=== PATIENT | male | born 2000 | race Caucasian/White ===

== ENCOUNTER 2025-03-13 20:39 | Emergency (ER) | payer OTHER, SELFPAY ==
[2025-03-13 20:41] VITALS: BP 138/85
--- NOTE | 2025-03-14 00:16 | ED.GENMED ---
History of Present Illness
General
Chief Complaint: Oral/Mouth Problem
Source: patient
Exam Limitations: none
Time Seen by Provider: 03/13/25 23:28
Nursing documentation reviewed up to this point in time: agreed with
History of Present Illness
History of Present Illness:
24-year-old male presenting to the emergency department today with concern comfort to his teeth and mouth after being hit while playing basketball prior to arrival. There are some looseness to the left maxillary anterior incisor. No trouble
swallowing or breathing. Did have previous dental injury and does have a retainer for this in place.
Review of Systems
Review of Systems
Allergies reviewed?: Yes
All Other Systems: ROS reviewed and negative except as documented in HPI and ROS
Phy Exam
Physical Exam
Physical Exam:
GENERAL: Alert , in no apparent distress
EYE: pupils equal and reactive
NECK: Supple, no significant adenopathy.
ENT: Slight movement to the left maxillary anterior incisor otherwise no emergent findings o/p clr, mmm.
CARDIAC: Regular rate and rhythm .
LUNGS: Clear breath sounds bilaterally, no acute respiratory distress, no wheezes/rales/rhonchi
ABDOMEN: Soft, without focal tenderness, no r/g, no cvat
NEUROLOGICAL: Alert and oriented, no focal neuro deficits
SKIN: Warm and dry, skin intact.
MUSCULOSKELETAL: No edema, well perfused.
PSYCH: Normal and appropriate interaction.
Course
Orders/Labs/Results
Orders:
Orders
03/13/25 20:43
CR Facial Bones Comp Min 3 Vw* Urgent
Comment:
Reason For Exam: injury
03/14/25 00:16
Ketorolac [Toradol] 30 mg IM NOW STA
Vital Signs
Initial and Last Documented VS:
Initial Vital Signs
Temp Pulse Resp BP Pulse Ox
98.0 F 73 20 138/85 98
03/13/25 20:41 03/13/25 20:41 03/13/25 20:41 03/13/25 20:41 03/13/25 20:41
Last Documented Vital Signs
Temp Pulse Resp BP Pulse Ox
98.0 F 60 12 138/85 98
03/13/25 20:41 03/14/25 00:25 03/14/25 00:25 03/13/25 20:41 03/14/25 00:17
MDM/Problems Addressed
MDM/Problems Addressed:
24-year-old male presenting to the emergency department today with concerns of a dental injury. Does have a subluxation to the left anterior incisor. Patient does have a retainer that does hold this in place he does have an appointment with a
dentist tomorrow. Advised for soft diet and close follow-up. Stable for outpatient management. Return precautions given.
*Pulse Oximetry
SaO2: 98
Oxygen Mode of Delivery: Room air
Patient hypoxic: no (98)
*Critical Care Note
Total Time (30-74mins, 75-104mins- exclusive of procedures): Not Applicable
ED Attending Note
-
Portions of this chart may have been created with voice recognition software.� Occasional wrong word or��sound alike� substitutions may have occurred due to the inherent limitations of voice recognition software.
Discharge Plan
Departure
Patient Disposition: Home (Routine Discharge)
Date of Disposition: 03/14/25
Time of Disposition: 00:16
Patient with high blood pressure during this ER visit?: No
Condition: Good
Covid-19: Not Applicable
Discharge Problem:
Subluxation of tooth
Instructions: Dental Pain (DC)
Referrals:
[facility], [Other]
NONE,* [Family Provider, Internal Medicine]
Activity Restrictions/Additional Instructions:
You came to the emergency department today with concerns of a dental injury. Please wear your retainer and follow close for further management. Please have a soft diet until follow-up. Return for any worsening, new or concerning symptoms.
Interventions
Interventions:
*Risk Screen - Suicide Last Done: 03/14/25 00:25
*General Assessment Last Done: 03/13/25 20:41
*Neglect/Abuse Screening Last Done: 03/14/25 00:25
*ED- Fall Risk Assessment Last Done: 03/14/25 00:25
*ED COVID-19 Vaccine History Last Done: 03/14/25 00:25
*Nursing Disposition Last Done: 03/14/25 00:25
Discharge Date and Time
Discharge Date/Time: 03/14/25 00:28
Print Language: UKRAINIAN
[2025-03-14] MEDS: TORADOL 30 MG IM (00:22)
== END 2025-03-14 00:28 | disposition home or self-care (01) ==
LOC: EMR 20:39
PROVIDERS: EMERGENCY PHYSICIAN Emergency Medicine
DX: S03.2XXA Dislocation of tooth, initial encounter (principal); W50.0XXA Accidental hit or strike by another person, initial encounter; Y93.67 Activity, basketball
CPT/HCPCS: 99284; 96372; 70150